=== PATIENT | male | born 1960 | race Caucasian/White ===

== ENCOUNTER 2018-06-08 11:55 | Inpatient (IN) | payer MEDICARE ==
[~2018-06-08] VITALS: Ht 363.2 cm; Wt 66.7 kg
[~2018-06-08 11:55] MED LIST: ASPI-1159 PO; ATOR40TA70 PO; BENA40TA9 PO; CINA30 PO; CYCL5TAB PO; DILT240C91 PO; GLIM1TAB2 PO; HYDR-523 PO; KRIL1CAP23 PO; SEVE800T8 PO; TURM1POW MC
[2018-06-08 12:59] LABS: HEMATOCRIT. 32.8 % (42.0-52.0); HEMOGLOBIN. 10.9 g/dL (14.0-18.0); MEAN CORPUSCULAR HEMOGLOBIN 32.4 pg (28.0-32.0); MEAN CORPUSCULAR VOLUME 97.4 fL (80.0-94.0); PLATELET 220 x1000/uL (130-400); RED BLOOD CELL COUNT 3.37 mill/uL (4.7-6.1); RED CELL DISTRIBUTION WIDTH 13.6 % (11.6-14.6)
[2018-06-08 13:08] LABS: CHLORIDE 101 mEq/L (98-107)
[2018-06-08 13:27] LABS: PLATELET ESTIMATE NORMAL
[2018-06-08] MEDS ORDERED: ASPIRIN 81MG TABLET PO NR (14:30)
[2018-06-08] MEDS ORDERED: HYDRALAZINE 20MG/ML VIAL IV NR (15:15)
[2018-06-08] MEDS ORDERED: NITROGLYCERIN 0.4MG TABLET SL SL ONE (16:15)
[2018-06-08] MEDS ORDERED: NITROGLYCERIN 50MG PREMIX 250 ML IV ONE (16:15)
[2018-06-08] MEDS ORDERED: LORAZEPAM 2MG/ML CPJ IV PRN (16:45)
[2018-06-08] MEDS ORDERED: MAGNESIUM/ALUMINUM HYDROXIDE/SIMETHICONE 30ML UDC PO PRN (16:45)
[2018-06-08] MEDS ORDERED: DOCUSATE SODIUM 100MG CAPSULE PO PRN (16:45)
[2018-06-08] MEDS ORDERED: ACETAMINOPHEN 325MG TABLET PO PRN (16:45)
[2018-06-08] MEDS ORDERED: DIPHENHYDRAMINE 50MG/ML VIAL IV PRN (16:45)
[2018-06-08] MEDS ORDERED: DEXTROSE 50% WATER 50ML SYRINGE IV PRN (16:45)
[2018-06-08] MEDS ORDERED: HYDRALAZINE 20MG/ML VIAL IV PRN (16:45)
[2018-06-08] MEDS ORDERED: ONDANSETRON HCL 4MG/2ML INJ IV PRN (16:45)
[2018-06-08] MEDS ORDERED: GUAIFENESIN 200MG/10ML SUGAR FREE UDC PO PRN (16:45)
[2018-06-08] MEDS ORDERED: IPRATROPIUM/ALBUTEROL 0.5-3(2.5)MG/3ML NEB INH PRN (16:45)
[2018-06-08] MEDS ORDERED: HYDROCODONE/ACETAMINOPHEN 10/325MG TABLET PO PRN (16:45)
[2018-06-08] MEDS ORDERED: CLONIDINE 0.1MG TABLET PO PRN (16:45)
[2018-06-08] MEDS ORDERED: HYDROMORPHONE HCL/PF 2MG/ML CPJ IV PRN (16:45)
[2018-06-08] MEDS: INSULIN LISPRO 100 UNITS/ML SUBCUT SCH (21:00)
[2018-06-08] MEDS: BLOOD SUGAR DIAGNOSTIC STRIP TEST SCH (21:00)
[2018-06-08 21:19] LABS: BG CARBOXYHEMOGLOBIN 0.4 % (0.5-1.5); BG DEOXYHEMOGLOBIN 13.9 % (0.0-5.0); BG FRACTION INSPIRED OXYGEN 50; BG HCO3 ACT 26.8 mmol/L (22.0-26.0); BG METHEMOGLOBIN 0.3 % (0.0-1.5); BG OXYHEMOGLOBIN 85.4 % (94.0-97.0); BG PCO2 33.6 mmHg (35.0-45.0); BG PH 7.519 (7.350-7.450); BG PO2 46.1 mmHg (75.0-100.0); BG SAMPLE SITE RIGHT RADIAL; BG TOTAL HEMOGLOBIN 11.2 g/dL (12.0-18.0); BG VENT MODE MASK - BIPAP; BG VENT RATE 15 set
[2018-06-08 21:35] VITALS: BP 167/106
[2018-06-08 22:00] VITALS: BP 172/95
[2018-06-08] MEDS: SODIUM CHLORIDE 0.9% INJ 3ML FLUSH IVF SCH (22:00)
[2018-06-08 22:14] VITALS: BP 185/110
[2018-06-08 22:30] VITALS: BP 142/86
[2018-06-08 23:00] VITALS: BP 165/111
[2018-06-08 23:30] VITALS: BP 139/94
[2018-06-08] MEDS ORDERED: INFLUENZA VIRUS VACCINE(AFLURIA) 0.5ML SYR IM ONE (23:45)
[2018-06-09] VITALS (40 sets, daily range): BP systolic 116–180; BP diastolic 58–102
[2018-06-09 00:53] LABS: CREATINE KINASE MB FRACTION 7.4 ng/mL (0.5-3.6)
[2018-06-09] MEDS: ENOXAPARIN 30MG/0.3ML SYR SUBCUT SCH ×2 (00:59→21:20)
[2018-06-09 06:52] LABS: CHLORIDE 101 mEq/L (98-107)
[2018-06-09 06:53] LABS: BASOPHILS % 0.5 % (0.0-2.0); EOSINOPHILS % 1.5 % (0.0-5.0); HEMATOCRIT. 36.9 % (42.0-52.0); HEMOGLOBIN. 12.2 g/dL (14.0-18.0); LYMPHOCYTES % 7.7 % (20.0-50.0); MEAN CORPUSCULAR HEMOGLOBIN 32.5 pg (28.0-32.0); MEAN CORPUSCULAR VOLUME 98.6 fL (80.0-94.0); MEAN PLATELET VOLUME 8.5 fl (7.4-10.4); MONOCYTES % 7.2 % (2.0-8.0); NEUTROPHILS % 83.1 % (40.0-76.0); PLATELET 206 x1000/uL (130-400); RED BLOOD CELL COUNT 3.75 mill/uL (4.7-6.1); RED CELL DISTRIBUTION WIDTH 13.7 % (11.6-14.6)
[2018-06-09] MEDS: SODIUM CHLORIDE 0.9% INJ 3ML FLUSH IVF SCH ×3 (06:55→21:20)
[2018-06-09] MEDS: BLOOD SUGAR DIAGNOSTIC STRIP TEST SCH ×4 (06:55→21:22)
[2018-06-09] MEDS: INSULIN LISPRO 100 UNITS/ML SUBCUT SCH ×4 (06:56→21:00)
[2018-06-09 07:17] LABS: BG BASE EXCESS 5.7 mmol/L (-2.0-2.0); BG CARBOXYHEMOGLOBIN 0.8 % (0.5-1.5); BG DEOXYHEMOGLOBIN 2.7 % (0.0-5.0); BG HCO3 ACT 29.7 mmol/L (22.0-26.0); BG METHEMOGLOBIN 0.3 % (0.0-1.5); BG OXYGEN SATURATION 97.3 % (92.0-98.5); BG OXYHEMOGLOBIN 96.2 % (94.0-97.0); BG PCO2 40.8 mmHg (35.0-45.0); BG PO2 93.5 mmHg (75.0-100.0); BG SAMPLE SITE RIGHT BRACHIAL; BG TOTAL HEMOGLOBIN 12.8 g/dL (12.0-18.0); BG VENT MODE NASAL CANNULA
[2018-06-09 07:26] LABS: PHOSPHORUS 1.9 mg/dL (2.5-4.9)
[2018-06-09 07:27] LABS: LDL CHOLESTEROL 133 mg/dL (5-100); T4 FREE 1.13 ng/dL (0.76-1.46)
[2018-06-09 07:28] LABS: CREATINE KINASE 102 IU/L (39-308); CREATINE KINASE MB FRACTION 6.4 ng/mL (0.5-3.6); HDL CHOLESTEROL 41 mg/dL (40-59)
[2018-06-09] MEDS: ASPIRIN 81MG EC TABLET PO SCH (09:01)
[2018-06-09 16:36] LABS: BG BASE EXCESS 3.1 mmol/L (-2.0-2.0); BG CARBOXYHEMOGLOBIN 0.7 % (0.5-1.5); BG DEOXYHEMOGLOBIN 4.2 % (0.0-5.0); BG FRACTION INSPIRED OXYGEN 21; BG HCO3 ACT 27.1 mmol/L (22.0-26.0); BG METHEMOGLOBIN 0.3 % (0.0-1.5); BG OXYGEN SATURATION 95.8 % (92.0-98.5); BG OXYHEMOGLOBIN 94.8 % (94.0-97.0); BG PH 7.459 (7.350-7.450); BG PO2 78.4 mmHg (75.0-100.0); BG SAMPLE SITE RIGHT RADIAL; BG TOTAL HEMOGLOBIN 12.3 g/dL (12.0-18.0); BG VENT MODE ROOM AIR
[2018-06-09] MEDS: IPRATROPIUM/ALBUTEROL 0.5-3(2.5)MG/3ML NEB HHN SCH (21:28)
[2018-06-10] VITALS (33 sets, daily range): BP systolic 108–175; BP diastolic 66–105
[2018-06-10] MEDS: IPRATROPIUM/ALBUTEROL 0.5-3(2.5)MG/3ML NEB HHN SCH ×4 (02:18→20:45)
[2018-06-10 05:31] LABS: BASOPHILS % 0.6 % (0.0-2.0); EOSINOPHILS % 1.4 % (0.0-5.0); HEMATOCRIT. 35.6 % (42.0-52.0); LYMPHOCYTES % 7.7 % (20.0-50.0); MEAN CORPUSCULAR HEMOGLOBIN 32.9 pg (28.0-32.0); MEAN CORPUSCULAR VOLUME 97.2 fL (80.0-94.0); MEAN PLATELET VOLUME 8.2 fl (7.4-10.4); NEUTROPHILS % 82.3 % (40.0-76.0); PLATELET 203 x1000/uL (130-400); RED BLOOD CELL COUNT 3.66 mill/uL (4.7-6.1); RED CELL DISTRIBUTION WIDTH 13.7 % (11.6-14.6)
[2018-06-10] MEDS: SODIUM CHLORIDE 0.9% INJ 3ML FLUSH IVF SCH ×3 (06:03→22:00)
[2018-06-10] MEDS: INSULIN LISPRO 100 UNITS/ML SUBCUT SCH ×4 (06:54→21:00)
[2018-06-10] MEDS: BLOOD SUGAR DIAGNOSTIC STRIP TEST SCH ×4 (06:54→21:00)
[2018-06-10] MEDS: ASPIRIN 81MG EC TABLET PO SCH (08:02)
[2018-06-11] VITALS (27 sets, daily range): BP systolic 127–182; BP diastolic 65–98
[2018-06-11] MEDS: IPRATROPIUM/ALBUTEROL 0.5-3(2.5)MG/3ML NEB HHN SCH ×4 (02:08→20:51)
[2018-06-11 05:54] LABS: PARTIAL THROMBOPLASTIN TIME 27.4 sec (23.4-31.0); PROTHROMBIN TIME 9.7 sec (9.1-11.1)
[2018-06-11 05:55] LABS: BASOPHILS % 0.7 % (0.0-2.0); EOSINOPHILS % 3.4 % (0.0-5.0); HEMATOCRIT. 34.9 % (42.0-52.0); HEMOGLOBIN. 11.9 g/dL (14.0-18.0); MEAN CORPUSCULAR HEMOGLOBIN 33.1 pg (28.0-32.0); MEAN CORPUSCULAR VOLUME 97.1 fL (80.0-94.0); MEAN PLATELET VOLUME 8.5 fl (7.4-10.4); MONOCYTES % 10.7 % (2.0-8.0); NEUTROPHILS % 75.2 % (40.0-76.0); PLATELET 213 x1000/uL (130-400); RED CELL DISTRIBUTION WIDTH 13.5 % (11.6-14.6)
[2018-06-11] MEDS: SODIUM CHLORIDE 0.9% INJ 3ML FLUSH IVF SCH ×3 (06:13→21:03)
[2018-06-11] MEDS: INSULIN LISPRO 100 UNITS/ML SUBCUT SCH ×4 (06:55→20:50)
[2018-06-11] MEDS: BLOOD SUGAR DIAGNOSTIC STRIP TEST SCH ×4 (06:55→20:50)
[2018-06-11] MEDS: ASPIRIN 81MG EC TABLET PO SCH (07:47)
[2018-06-11] MEDS ORDERED: LIDOCAINE HCL 1% 20ML VIAL (Pyxis) INJ ONE (12:15)
[2018-06-11] MEDS ORDERED: IODIXANOL 320MG/ML 100 ML BOTTLE IV ONE (12:16)
[2018-06-11] MEDS ORDERED: MIDAZOLAM HCL 2 MG/2 ML VIAL ONE (12:54)
[2018-06-11] MEDS ORDERED: FENTANYL CITRATE/PF 50MCG/ML 2ML VIAL ONE (12:54)
[2018-06-11] MEDS ORDERED: ACETAMINOPHEN 325MG TABLET PO PRN (13:45)
[2018-06-11] MEDS ORDERED: ATROPINE SULFATE 1MG/10ML SYR IV PRN (13:45)
[2018-06-11] MEDS ORDERED: NITROGLYCERIN 50MCG/ML 10ML VIAL (CATH LAB) IV ONE (13:59)
[2018-06-11] MEDS ORDERED: NICARDIPINE 100MCG/ML 10ML VIAL (CATH LAB) IV ONE (13:59)
[2018-06-11] MEDS: ISOSORBIDE MONONITRATE 30MG TABLET SR 24HR PO SCH (15:49)
[2018-06-11] MEDS: METOPROLOL TARTRATE 25MG TABLET PO SCH (20:58)
[2018-06-11] MEDS ORDERED: CARVEDILOL 3.125 MG TABLET PO SCH (21:00)
[2018-06-11] MEDS ORDERED: ATORVASTATIN CALCIUM 40MG TABLET PO SCH (21:00)
[2018-06-11] MEDS ORDERED: ATORVASTATIN CALCIUM 20MG TABLET PO SCH (21:00)
[2018-06-12] VITALS (13 sets, daily range): BP systolic 106–160; BP diastolic 66–86
[2018-06-12] MEDS: IPRATROPIUM/ALBUTEROL 0.5-3(2.5)MG/3ML NEB HHN SCH ×3 (01:04→14:24)
[2018-06-12] MEDS: SODIUM CHLORIDE 0.9% INJ 3ML FLUSH IVF SCH ×2 (06:18→14:00)
[2018-06-12] MEDS: BLOOD SUGAR DIAGNOSTIC STRIP TEST SCH ×3 (06:18→16:36)
[2018-06-12 07:05] LABS: BASOPHILS % 0.7 % (0.0-2.0); EOSINOPHILS % 4.7 % (0.0-5.0); HEMATOCRIT. 33.4 % (42.0-52.0); HEMOGLOBIN. 11.3 g/dL (14.0-18.0); MEAN CORPUSCULAR HEMOGLOBIN 33.1 pg (28.0-32.0); MEAN CORPUSCULAR VOLUME 97.7 fL (80.0-94.0); MEAN PLATELET VOLUME 8.6 fl (7.4-10.4); MONOCYTES % 8.7 % (2.0-8.0); NEUTROPHILS % 76.9 % (40.0-76.0); PLATELET 214 x1000/uL (130-400); RED BLOOD CELL COUNT 3.42 mill/uL (4.7-6.1); RED CELL DISTRIBUTION WIDTH 13.4 % (11.6-14.6)
[2018-06-12] MEDS: INSULIN LISPRO 100 UNITS/ML SUBCUT SCH ×3 (07:20→16:36)
[2018-06-12] MEDS: ASPIRIN 81MG EC TABLET PO SCH (08:11)
[2018-06-12] MEDS: METOPROLOL TARTRATE 25MG TABLET PO SCH (08:13)
[2018-06-12] MEDS: ISOSORBIDE MONONITRATE 30MG TABLET SR 24HR PO SCH (08:16)
[2018-06-12] MEDS ORDERED: BENAZEPRIL 10MG TABLET PO SCH (09:00)
== END 2018-06-12 21:20 | disposition home or self-care (01) | DRG 280 ==
LOC: ER 12:50 → EDBEDREQ 15:06 → ENRESERV 15:34 → CANRESERV 15:34 → EDBEDREQSVC 16:16 → MICUSO 16:16 → EDBEDREQTM 16:16 → ENRESERV 18:37 → MICUSO 06-10 06:15 → CVICU 06-10 15:53 → 3WST 06-11 20:18
PROVIDERS: ADMIT Internal Medicine; ATTEND Internal Medicine
PROC: 5A09357 Assistance with Respiratory Ventilation, Less than 24 Consecutive Hours, Continuous Positive Airway Pressure (ICD-10-PCS; principal; 2018-06-08)
PROC: 5A1D70Z Performance of Urinary Filtration, Intermittent, Less than 6 Hours Per Day (ICD-10-PCS; 2018-06-08)
PROC: 5A1D70Z Performance of Urinary Filtration, Intermittent, Less than 6 Hours Per Day (ICD-10-PCS; 2018-06-10)
PROC: 5A1D70Z Performance of Urinary Filtration, Intermittent, Less than 6 Hours Per Day (ICD-10-PCS; 2018-06-11)
PROC: 4A023N7 Measurement of Cardiac Sampling and Pressure, Left Heart, Percutaneous Approach (ICD-10-PCS; 2018-06-11)
PROC: B2111ZZ Fluoroscopy of Multiple Coronary Arteries using Low Osmolar Contrast (ICD-10-PCS; 2018-06-11)
PROC: B2151ZZ Fluoroscopy of Left Heart using Low Osmolar Contrast (ICD-10-PCS; 2018-06-11)
PROC: B41F1ZZ Fluoroscopy of Right Lower Extremity Arteries using Low Osmolar Contrast (ICD-10-PCS; 2018-06-11)
DX: I21.4 Non-ST elevation (NSTEMI) myocardial infarction (principal); J96.00 Acute respiratory failure, unspecified whether with hypoxia or hypercapnia; N18.6 End stage renal disease; I13.2 Hypertensive heart and chronic kidney disease with heart failure and with stage 5 chronic kidney disease, or end stage renal disease; E46 Unspecified protein-calorie malnutrition; I50.32 Chronic diastolic (congestive) heart failure; I42.9 Cardiomyopathy, unspecified; E87.1 Hypo-osmolality and hyponatremia; I25.10 Atherosclerotic heart disease of native coronary artery without angina pectoris; E11.22 Type 2 diabetes mellitus with diabetic chronic kidney disease; E87.5 Hyperkalemia; D63.8 Anemia in other chronic diseases classified elsewhere; E78.5 Hyperlipidemia, unspecified; J44.9 Chronic obstructive pulmonary disease, unspecified; Z79.82 Long term (current) use of aspirin; Z79.84 Long term (current) use of oral hypoglycemic drugs; Z82.49 Family history of ischemic heart disease and other diseases of the circulatory system; Z87.891 Personal history of nicotine dependence; Z99.2 Dependence on renal dialysis; Z79.899 Other long term (current) drug therapy
CPT/HCPCS: 36415; 36600; 71045; 80048; 80061; 82375; 82550; 82553; 82805; 82962; 83605; 83880; 84100; 84439; 84443; 84484; 93005; 93306; 93458; 94640; 94660; 96374; 96375; 99291; C1760; C1769; C1887; C1893; J0360; J1644; J1650; J1815; J2060; J2250; J3010; J3490; J7620; Q9967

== ENCOUNTER 2018-06-19 05:59 | Inpatient (IN) | payer MEDICARE ==
[~2018-06-19] VITALS: Ht 182.9 cm; Wt 76.4 kg
[2018-06-19 06:44] LABS: BASOPHILS % 0.6 % (0.0-2.0); EOSINOPHILS % 1.7 % (0.0-5.0); HEMATOCRIT. 29.1 % (42.0-52.0); HEMOGLOBIN. 9.9 g/dL (14.0-18.0); LYMPHOCYTES % 9.5 % (20.0-50.0); MEAN CORPUSCULAR HEMOGLOBIN 33.5 pg (28.0-32.0); MEAN PLATELET VOLUME 8.3 fl (7.4-10.4); MONOCYTES % 9.1 % (2.0-8.0); NEUTROPHILS % 79.1 % (40.0-76.0); PLATELET 176 x1000/uL (130-400); RED BLOOD CELL COUNT 2.97 mill/uL (4.7-6.1)
[2018-06-19 06:49] LABS: CHLORIDE 102 mEq/L (98-107)
[2018-06-19] MEDS ORDERED: SODIUM CHLORIDE 0.9% 1,000 ML IV ONE (06:50)
[2018-06-19] MEDS ORDERED: SODIUM CHLORIDE 0.9% 1000ML BAG (SEPSIS BOLUS) IV ONE (07:00)
[2018-06-19] MEDS ORDERED: CLONIDINE 0.1MG TABLET PO PRN (21:45)
[2018-06-19] MEDS ORDERED: ONDANSETRON HCL 4MG/2ML INJ IV PRN (21:45)
[2018-06-19] MEDS ORDERED: DIPHENHYDRAMINE 50MG/ML VIAL IV PRN (21:45)
[2018-06-19] MEDS ORDERED: MAGNESIUM/ALUMINUM HYDROXIDE/SIMETHICONE 30ML UDC PO PRN (21:45)
[2018-06-19] MEDS ORDERED: GUAIFENESIN 200MG/10ML SUGAR FREE UDC PO PRN (21:45)
[2018-06-19 23:30] VITALS: BP 160/80
[2018-06-20] VITALS (9 sets, daily range): BP systolic 123–180; BP diastolic 64–97
[2018-06-20] MEDS ORDERED: ACETAMINOPHEN 325MG TABLET PO PRN ×2 (01:00→22:00)
[2018-06-20 07:28] LABS: BASOPHILS % 1.1 % (0.0-2.0); EOSINOPHILS % 2.2 % (0.0-5.0); HEMATOCRIT. 33.9 % (42.0-52.0); HEMOGLOBIN. 11.3 g/dL (14.0-18.0); LYMPHOCYTES % 10.1 % (20.0-50.0); MEAN CORPUSCULAR HEMOGLOBIN 32.8 pg (28.0-32.0); MEAN CORPUSCULAR VOLUME 98.5 fL (80.0-94.0); MEAN PLATELET VOLUME 8.6 fl (7.4-10.4); MONOCYTES % 7.1 % (2.0-8.0); NEUTROPHILS % 79.5 % (40.0-76.0); PLATELET 228 x1000/uL (130-400); RED BLOOD CELL COUNT 3.44 mill/uL (4.7-6.1)
[2018-06-20] MEDS: BENAZEPRIL 10MG TABLET PO SCH ×2 (09:32→11:07)
[2018-06-20] MEDS: AMLODIPINE 10MG TABLET PO SCH ×2 (09:32→11:06)
[2018-06-20] MEDS: ENOXAPARIN 30MG/0.3ML SYR SUBCUT SCH (09:33)
[2018-06-20] MEDS ORDERED: MORPHINE SULFATE 4 MG/ML CPJ (NOT FOR IM USE) IV PRN (13:15)
[2018-06-20] MEDS: ASPIRIN 81MG TABLET PO SCH (13:23)
[2018-06-20] MEDS: NITROGLYCERIN OINT 1GM/INCH UDPKT TD SCH ×2 (13:23→21:50)
[2018-06-20] MEDS: CARVEDILOL 3.125 MG TABLET PO SCH ×2 (13:23→21:50)
[2018-06-20] MEDS: SODIUM CHLORIDE 0.9% INJ 3ML FLUSH IVF SCH ×4 (14:00→22:33)
[2018-06-20] MEDS ORDERED: DOCUSATE SODIUM 100MG CAPSULE PO SCH (21:00)
[2018-06-20] MEDS ORDERED: BISACODYL 10MG SUPP PR PRN (21:00)
[2018-06-20] MEDS ORDERED: ATORVASTATIN CALCIUM 40MG TABLET PO SCH (21:00)
[2018-06-20] MEDS ORDERED: NITROGLYCERIN 0.4MG TABLET SL SL PRN (22:00)
[2018-06-20] MEDS: ALLOPURINOL 300 MG TABLET PO SCH (22:40)
[2018-06-20] MEDS ORDERED: ASCORBIC ACID 500 MG TABLET PO SCH (23:00)
[2018-06-20] MEDS ORDERED: CHLORHEXIDINE GLUCONATE 4% EXTERNAL USE TOP SCH (23:30)
[2018-06-21] VITALS (39 sets, daily range): BP systolic 83–185; BP diastolic 48–89
[2018-06-21] MEDS: ALLOPURINOL 300 MG TABLET PO SCH (06:04)
[2018-06-21] MEDS: SODIUM CHLORIDE 0.9% INJ 3ML FLUSH IVF SCH (06:04)
[2018-06-21] MEDS: NITROGLYCERIN OINT 1GM/INCH UDPKT TD SCH (06:05)
[2018-06-21 07:04] LABS: HEMATOCRIT. 30.4 % (42.0-52.0); HEMOGLOBIN. 10.3 g/dL (14.0-18.0); MEAN CORPUSCULAR HEMOGLOBIN 32.7 pg (28.0-32.0); MEAN CORPUSCULAR VOLUME 96.9 fL (80.0-94.0); MEAN PLATELET VOLUME 8.6 fl (7.4-10.4); PLATELET 185 x1000/uL (130-400); RED BLOOD CELL COUNT 3.14 mill/uL (4.7-6.1); RED CELL DISTRIBUTION WIDTH 13.1 % (11.6-14.6)
[2018-06-21 07:12] LABS: PROTHROMBIN TIME 10.5 sec (9.1-11.1)
[2018-06-21 07:23] LABS: CHLORIDE 102 mEq/L (98-107)
[2018-06-21] MEDS ORDERED: METHYLENE BLUE 50 MG/10 ML AMP IV ONE (08:00)
[2018-06-21] MEDS ORDERED: THROMBIN (BOVINE) 5000 UNITS/VIAL TOP ONE ×3 (08:01→16:48)
[2018-06-21] MEDS ORDERED: HEPARIN 5000 UNITS/ML VIAL ONE (08:01)
[2018-06-21] MEDS ORDERED: BACITRACIN 50,000 UNITS/VIAL ONE ×2 (08:02→09:37)
[2018-06-21] MEDS ORDERED: GELATIN SPONGE,ABSORBABLE 12-7MM SPONGE ONE (08:10)
[2018-06-21] MEDS ORDERED: PAPAVERINE HCL 30 MG/ML 2ML IV ONE (08:11)
[2018-06-21] MEDS: CARVEDILOL 3.125 MG TABLET PO SCH (08:23)
[2018-06-21] MEDS: CHLORHEXIDINE GLUCONATE 4% EXTERNAL USE TOP SCH ×2 (08:23→09:00)
[2018-06-21] MEDS: BENAZEPRIL 10MG TABLET PO SCH (09:00)
[2018-06-21] MEDS: ASPIRIN 81MG TABLET PO SCH (09:00)
[2018-06-21] MEDS: ENOXAPARIN 30MG/0.3ML SYR SUBCUT SCH (09:00)
[2018-06-21] MEDS: AMLODIPINE 10MG TABLET PO SCH (09:00)
[2018-06-21] MEDS ORDERED: HEPARIN 1000 UNITS/ML 10ML ONE ×2 (09:40→12:34)
[2018-06-21] MEDS ORDERED: MIDAZOLAM HCL 5 MG/ML VIAL ONE (10:59)
[2018-06-21] MEDS ORDERED: ROCURONIUM BROMIDE 10MG/ML VIAL 5ML IV ONE (11:00)
[2018-06-21] MEDS ORDERED: AMINOCAPROIC ACID 10,000 MG in SODIUM CHLORIDE 0.9% 460 ML IV PRN (11:00)
[2018-06-21] MEDS ORDERED: PAPAVERINE HCL 180MG in SODIUM CHLORIDE 0.9% 24ML IV PRN (11:00)
[2018-06-21] MEDS ORDERED: NICARDIPINE 40MG/200ML PREMIX 200 ML IV PRN (11:00)
[2018-06-21] MEDS ORDERED: DOBUTAMINE HCL 250 MG in DEXT 5% WATER 230 ML IV PRN (11:00)
[2018-06-21] MEDS ORDERED: PROPOFOL 200MG/20ML VIAL IV ONE (11:00)
[2018-06-21] MEDS ORDERED: EPINEPHRINE 4 MG in DEXT 5% WATER 246 ML IV PRN (11:00)
[2018-06-21] MEDS ORDERED: NOREPINEPHRINE 4 MG in DEXT 5% WATER 246 ML IV PRN (11:00)
[2018-06-21] MEDS ORDERED: INSULIN REGULAR (DRIP) 100 UNITS in SODIUM CHLORIDE 0.9% 99 ML IV PRN (11:00)
[2018-06-21] MEDS ORDERED: CEFAZOLIN 2,000 MG in DEXT 5% WATER 100 ML IV PRN (11:00)
[2018-06-21] MEDS ORDERED: DEL NIDO ELECTROLYTE-S(PH 7.4) 1,000 ML IV PRN ×2 (11:00)
[2018-06-21] MEDS ORDERED: FENTANYL CITRATE/PF 50MCG/ML 5ML VIAL ONE (11:01)
[2018-06-21] MEDS ORDERED: BACITRACIN 15GM TUBE TOP ONE (11:05)
[2018-06-21] MEDS ORDERED: LIDOCAINE HCL/PF 2% 20MG/ML 5 ML/VIAL ONE (11:41)
[2018-06-21 12:32] LABS: PLATELET ESTIMATE NORMAL
[2018-06-21] MEDS ORDERED: PHENYLEPHRINE HCL 10 MG/ML 1ML (IV VIAL) IV ONE (12:32)
[2018-06-21] MEDS ORDERED: ALBUMIN HUMAN 25GM/100ML (25%) IV ONE (12:32)
[2018-06-21] MEDS ORDERED: SODIUM BICARBONATE 8.4% 1 MEQ/ML 50ML SYR IV ONE ×3 (12:32→20:23)
[2018-06-21] MEDS ORDERED: AMINOCAPROIC ACID 250 MG/ML 20ML VIAL ONE (12:32)
[2018-06-21] MEDS ORDERED: CALCIUM CHLORIDE 1GM/10ML SYR IV ONE ×2 (12:32→15:46)
[2018-06-21] MEDS ORDERED: HEPARIN 10,000 UNITS/ML VIAL ONE ×2 (12:33→14:47)
[2018-06-21] MEDS ORDERED: MANNITOL 20% 500 ML IV ONE (12:33)
[2018-06-21] MEDS ORDERED: NEOSTIGMINE METHYLSULFATE 1MG/ML 10 ML VIAL ONE (15:39)
[2018-06-21] MEDS ORDERED: PROTAMINE SULFATE 10MG/ML VIAL 25ML IV ONE (15:46)
[2018-06-21] MEDS ORDERED: GENTAMICIN SULF 40MG/ML 2ML VIAL ONE (16:39)
[2018-06-21] MEDS ORDERED: SEVOFLURANE 250 ML LIQUID INH ONE (16:39)
[2018-06-21 17:49] LABS: HEMATOCRIT. 23.4 % (42.0-52.0); HEMOGLOBIN. 7.8 g/dL (14.0-18.0); MEAN CORPUSCULAR HEMOGLOBIN 32.8 pg (28.0-32.0); MEAN CORPUSCULAR VOLUME 97.9 fL (80.0-94.0); MEAN PLATELET VOLUME 8.7 fl (7.4-10.4); PLATELET 113 x1000/uL (130-400); RED BLOOD CELL COUNT 2.39 mill/uL (4.7-6.1)
[2018-06-21 17:52] LABS: CHLORIDE 102 mEq/L (98-107)
[2018-06-21 18:49] LABS: PLATELET ESTIMATE SLIGHTLY DECREASED
[2018-06-21 19:00] LABS: BG BASE EXCESS -6.6 mmol/L (-2.0-2.0); BG CARBOXYHEMOGLOBIN 0.3 % (0.5-1.5); BG DEOXYHEMOGLOBIN 16.3 % (0.0-5.0); BG FRACTION INSPIRED OXYGEN 100; BG HCO3 ACT 20.5 mmol/L (22.0-26.0); BG METHEMOGLOBIN 0.1 % (0.0-1.5); BG OXYGEN SATURATION 83.6 % (92.0-98.5); BG OXYHEMOGLOBIN 83.3 % (94.0-97.0); BG PCO2 48.7 mmHg (35.0-45.0); BG PH 7.243 (7.350-7.450); BG SAMPLE SITE A-LINE; BG TOTAL HEMOGLOBIN 9.4 g/dL (12.0-18.0); BG VENT MODE AMBU BAG
[2018-06-21] MEDS ORDERED: NICARDIPINE 50 MG in SODIUM CHLORIDE 0.9% 230 ML IV PRN ×4 (19:15)
[2018-06-21] MEDS ORDERED: ALBUMIN HUMAN 12.5G/250ML (5%) IV PRN (19:30)
[2018-06-21] MEDS ORDERED: SODIUM CHLORIDE 0.9% 500 ML IV PRN (19:30)
[2018-06-21] MEDS ORDERED: ACETAMINOPHEN 325MG TABLET PO PRN (19:30)
[2018-06-21] MEDS ORDERED: OXYCODONE HCL/ACETAMINOPHEN 5/325MG TABLET PO PRN ×2 (19:30)
[2018-06-21] MEDS ORDERED: MORPHINE SULFATE 4 MG/ML CPJ (NOT FOR IM USE) IV PRN (19:30)
[2018-06-21] MEDS ORDERED: ONDANSETRON HCL 4MG/2ML INJ IV PRN (19:30)
[2018-06-21] MEDS ORDERED: DOCUSATE SODIUM 100MG CAPSULE PO SCH (20:00)
[2018-06-21 20:10] LABS: BG BASE EXCESS -4.2 mmol/L (-2.0-2.0); BG BILEVEL POS AIRWAY PRESSURE 18/5; BG CARBOXYHEMOGLOBIN 0.3 % (0.5-1.5); BG DEOXYHEMOGLOBIN 4.8 % (0.0-5.0); BG FRACTION INSPIRED OXYGEN 60; BG HCO3 ACT 21.4 mmol/L (22.0-26.0); BG METHEMOGLOBIN 0.3 % (0.0-1.5); BG OXYGEN SATURATION 95.2 % (92.0-98.5); BG OXYHEMOGLOBIN 94.6 % (94.0-97.0); BG PCO2 41.4 mmHg (35.0-45.0); BG PH 7.332 (7.350-7.450); BG PO2 80.4 mmHg (75.0-100.0); BG SAMPLE SITE A-LINE; BG TOTAL HEMOGLOBIN 9.9 g/dL (12.0-18.0); BG VENT MODE MASK - BIPAP; BG VENT RATE 18 set
[2018-06-21] MEDS: IPRATROPIUM/ALBUTEROL 0.5-3(2.5)MG/3ML NEB HHN SCH (20:42)
[2018-06-21] MEDS: DEXT 5%/0.45% NACL 1000ML 1,000 ML IV SCH (20:54)
[2018-06-21] MEDS ORDERED: NOREPINEPHRINE 4 MG in DEXT 5% WATER 246 ML IV SCH (21:00)
[2018-06-21] MEDS ORDERED: CEFAZOLIN 1000MG PREMIX 50 ML IV NR (21:00)
[2018-06-21 21:21] LABS: BG BASE EXCESS -1.4 mmol/L (-2.0-2.0); BG BILEVEL POS AIRWAY PRESSURE 18/5; BG CARBOXYHEMOGLOBIN 0.3 % (0.5-1.5); BG DEOXYHEMOGLOBIN 4.3 % (0.0-5.0); BG FRACTION INSPIRED OXYGEN 60; BG HCO3 ACT 24.3 mmol/L (22.0-26.0); BG METHEMOGLOBIN 0.3 % (0.0-1.5); BG OXYGEN SATURATION 95.7 % (92.0-98.5); BG OXYHEMOGLOBIN 95.1 % (94.0-97.0); BG PCO2 45.3 mmHg (35.0-45.0); BG PH 7.348 (7.350-7.450); BG PO2 82.9 mmHg (75.0-100.0); BG SAMPLE SITE A-LINE; BG TOTAL HEMOGLOBIN 9.9 g/dL (12.0-18.0); BG VENT MODE MASK - BIPAP
[2018-06-22] VITALS (111 sets, daily range): BP systolic 108–181; BP diastolic -22–99
[2018-06-22] MEDS ORDERED: INSULIN REGULAR (DRIP) 100 UNITS in SODIUM CHLORIDE 0.9% 100 ML IV SCH (00:01)
[2018-06-22] MEDS ORDERED: DEXTROSE 50% WATER 50ML SYRINGE IV PRN ×2 (00:15)
[2018-06-22] MEDS: IPRATROPIUM/ALBUTEROL 0.5-3(2.5)MG/3ML NEB HHN SCH ×7 (00:18→23:49)
[2018-06-22 00:30] LABS: HEMATOCRIT. 26.1 % (42.0-52.0); MEAN CORPUSCULAR HEMOGLOBIN 31.7 pg (28.0-32.0); MEAN CORPUSCULAR VOLUME 91.5 fL (80.0-94.0); PLATELET 146 x1000/uL (130-400); RED BLOOD CELL COUNT 2.85 mill/uL (4.7-6.1)
[2018-06-22] MEDS: BLOOD SUGAR DIAGNOSTIC STRIP TEST SCH ×23 (01:00→23:00)
[2018-06-22 05:24] LABS: BG BASE EXCESS -1.9 mmol/L (-2.0-2.0); BG BILEVEL POS AIRWAY PRESSURE 18/5; BG CARBOXYHEMOGLOBIN 0.3 % (0.5-1.5); BG DEOXYHEMOGLOBIN 2.6 % (0.0-5.0); BG FRACTION INSPIRED OXYGEN 40; BG HCO3 ACT 23.7 mmol/L (22.0-26.0); BG OXYGEN SATURATION 97.4 % (92.0-98.5); BG OXYHEMOGLOBIN 97.1 % (94.0-97.0); BG PCO2 44.1 mmHg (35.0-45.0); BG PH 7.349 (7.350-7.450); BG PO2 106.1 mmHg (75.0-100.0); BG SAMPLE SITE A-LINE; BG VENT MODE MASK - BIPAP
[2018-06-22 06:18] LABS: HEMATOCRIT. 27.2 % (42.0-52.0); HEMOGLOBIN. 9.4 g/dL (14.0-18.0); MEAN CORPUSCULAR HEMOGLOBIN 31.7 pg (28.0-32.0); MEAN CORPUSCULAR VOLUME 91.9 fL (80.0-94.0); MEAN PLATELET VOLUME 8.7 fl (7.4-10.4); PLATELET 158 x1000/uL (130-400); RED BLOOD CELL COUNT 2.96 mill/uL (4.7-6.1); RED CELL DISTRIBUTION WIDTH 17.7 % (11.6-14.6)
[2018-06-22 06:31] LABS: PHOSPHORUS 4.6 mg/dL (2.5-4.9)
[2018-06-22] MEDS: FAMOTIDINE 20MG/2ML VIAL IV SCH (09:04)
[2018-06-22] MEDS: BACITRACIN 15GM TUBE TOP SCH ×2 (09:04→17:23)
[2018-06-22] MEDS: DOCUSATE SODIUM 100MG CAPSULE PO SCH (09:08)
[2018-06-22] MEDS: LACTULOSE 20G/30ML UDC PO SCH (09:08)
[2018-06-22] MEDS: POLYETHYLENE GLYCOL 3350 (17GM) 1 DOSE PACK PO SCH (09:08)
[2018-06-22] MEDS: SENNOSIDES/DOCUSATE SOD 8.6/50MG TABLET PO SCH (13:54)
[2018-06-22] MEDS ORDERED: CLONIDINE 0.1MG TABLET PO PRN (14:30)
[2018-06-22] MEDS: ASPIRIN 81MG TABLET PO SCH (15:17)
[2018-06-22] MEDS: CARVEDILOL 3.125 MG TABLET PO SCH ×2 (15:17→21:06)
[2018-06-22] MEDS: DEXT 5%/0.45% NACL 1000ML 1,000 ML IV SCH (21:02)
[2018-06-22] MEDS: ATORVASTATIN CALCIUM 40MG TABLET PO SCH (21:06)
[2018-06-23] VITALS (43 sets, daily range): BP systolic 101–144; BP diastolic 66–91
[2018-06-23] MEDS: BLOOD SUGAR DIAGNOSTIC STRIP TEST SCH ×24 (00:39→23:34)
[2018-06-23 04:01] LABS: PLATELET ESTIMATE NORMAL
[2018-06-23] MEDS: IPRATROPIUM/ALBUTEROL 0.5-3(2.5)MG/3ML NEB HHN SCH ×5 (04:25→21:27)
[2018-06-23 07:05] LABS: HEMOGLOBIN. 10.2 g/dL (14.0-18.0); MEAN CORPUSCULAR HEMOGLOBIN 31.3 pg (28.0-32.0); PLATELET 143 x1000/uL (130-400); RED BLOOD CELL COUNT 3.26 mill/uL (4.7-6.1); RED CELL DISTRIBUTION WIDTH 18.2 % (11.6-14.6)
[2018-06-23 07:21] LABS: PHOSPHORUS 4.3 mg/dL (2.5-4.9)
[2018-06-23] MEDS: LACTULOSE 20G/30ML UDC PO SCH (08:30)
[2018-06-23] MEDS: DOCUSATE SODIUM 100MG CAPSULE PO SCH (08:31)
[2018-06-23] MEDS: CARVEDILOL 3.125 MG TABLET PO SCH ×2 (08:31→21:00)
[2018-06-23] MEDS: SENNOSIDES/DOCUSATE SOD 8.6/50MG TABLET PO SCH (08:31)
[2018-06-23] MEDS: FAMOTIDINE 20MG/2ML VIAL IV SCH (08:31)
[2018-06-23] MEDS: ASPIRIN 81MG TABLET PO SCH (08:31)
[2018-06-23] MEDS: POLYETHYLENE GLYCOL 3350 (17GM) 1 DOSE PACK PO SCH (08:32)
[2018-06-23] MEDS: BACITRACIN 15GM TUBE TOP SCH ×2 (09:00→17:00)
[2018-06-23 13:51] LABS: PLATELET ESTIMATE NORMAL
[2018-06-23 14:04] LABS: PLATELET ESTIMATE NORMAL
[2018-06-23] MEDS ORDERED: LACTULOSE 20G/30ML UDC PO NR (17:45)
[2018-06-23] MEDS: ATORVASTATIN CALCIUM 40MG TABLET PO SCH (22:26)
[2018-06-24] VITALS (33 sets, daily range): BP systolic 121–150; BP diastolic 67–87
[2018-06-24] MEDS: BLOOD SUGAR DIAGNOSTIC STRIP TEST SCH ×15 (00:17→22:02)
[2018-06-24] MEDS: IPRATROPIUM/ALBUTEROL 0.5-3(2.5)MG/3ML NEB HHN SCH ×5 (04:35→20:59)
[2018-06-24 08:04] LABS: HEMATOCRIT. 30.5 % (42.0-52.0); HEMOGLOBIN. 10.2 g/dL (14.0-18.0); MEAN CORPUSCULAR HEMOGLOBIN 30.9 pg (28.0-32.0); MEAN CORPUSCULAR VOLUME 92.7 fL (80.0-94.0); MEAN PLATELET VOLUME 9.5 fl (7.4-10.4); PLATELET 157 x1000/uL (130-400); RED BLOOD CELL COUNT 3.29 mill/uL (4.7-6.1); RED CELL DISTRIBUTION WIDTH 17.5 % (11.6-14.6)
[2018-06-24] MEDS: BACITRACIN 15GM TUBE TOP SCH ×3 (09:00→16:08)
[2018-06-24] MEDS: SENNOSIDES/DOCUSATE SOD 8.6/50MG TABLET PO SCH (09:06)
[2018-06-24] MEDS: POLYETHYLENE GLYCOL 3350 (17GM) 1 DOSE PACK PO SCH (09:06)
[2018-06-24] MEDS: ASPIRIN 81MG TABLET PO SCH (09:06)
[2018-06-24] MEDS: FAMOTIDINE 20MG/2ML VIAL IV SCH (09:06)
[2018-06-24] MEDS: DOCUSATE SODIUM 100MG CAPSULE PO SCH (09:06)
[2018-06-24] MEDS: LACTULOSE 20G/30ML UDC PO SCH (09:06)
[2018-06-24 09:08] LABS: PLATELET ESTIMATE NORMAL
[2018-06-24] MEDS: CARVEDILOL 3.125 MG TABLET PO SCH (09:08)
[2018-06-24] MEDS ORDERED: ASPIRIN 81MG TABLET PO SCH (11:00)
[2018-06-24] MEDS: CARVEDILOL 6.25 MG TABLET PO SCH ×3 (11:00→21:58)
[2018-06-24] MEDS ORDERED: DEXTROSE 50% WATER 50ML SYRINGE IV PRN (11:30)
[2018-06-24] MEDS ORDERED: INSULIN GLARGINE UD 100 UNITS/ML SYR SUBCUT NR (11:45)
[2018-06-24] MEDS: INSULIN LISPRO 100 UNITS/ML SUBCUT SCH ×3 (12:08→22:06)
[2018-06-24] MEDS: ATORVASTATIN CALCIUM 40MG TABLET PO SCH (21:58)
[2018-06-25] VITALS (18 sets, daily range): BP systolic 135–167; BP diastolic 64–93
[2018-06-25] MEDS: IPRATROPIUM/ALBUTEROL 0.5-3(2.5)MG/3ML NEB HHN SCH ×6 (01:12→21:57)
[2018-06-25] MEDS: BLOOD SUGAR DIAGNOSTIC STRIP TEST SCH ×4 (05:48→20:51)
[2018-06-25] MEDS: INSULIN LISPRO 100 UNITS/ML SUBCUT SCH ×4 (07:20→21:11)
[2018-06-25] MEDS: POLYETHYLENE GLYCOL 3350 (17GM) 1 DOSE PACK PO SCH (08:30)
[2018-06-25] MEDS: LACTULOSE 20G/30ML UDC PO SCH (08:30)
[2018-06-25] MEDS: FAMOTIDINE 20MG/2ML VIAL IV SCH (08:30)
[2018-06-25] MEDS: SENNOSIDES/DOCUSATE SOD 8.6/50MG TABLET PO SCH (08:31)
[2018-06-25] MEDS: ASPIRIN 81MG TABLET PO SCH (08:31)
[2018-06-25] MEDS: DOCUSATE SODIUM 100MG CAPSULE PO SCH (08:31)
[2018-06-25] MEDS: CARVEDILOL 6.25 MG TABLET PO SCH ×2 (08:31→20:51)
[2018-06-25] MEDS: BACITRACIN 15GM TUBE TOP SCH ×2 (08:32→17:25)
[2018-06-25] MEDS: BENAZEPRIL 10MG TABLET PO SCH (12:30)
[2018-06-25 12:52] LABS: HEMATOCRIT 32.2 % (42.0-52.0); HEMOGLOBIN 10.7 g/dL (14.0-18.0); MEAN CORPUSCULAR HEMOGLOBIN 30.8 pg (28.0-32.0); MEAN CORPUSCULAR VOLUME 92.5 fL (80.0-94.0); PLATELET 153 x1000/uL (130-400); RED BLOOD CELL COUNT 3.48 mill/uL (4.7-6.1); RED CELL DISTRIBUTION WIDTH 16.7 % (11.6-14.6)
[2018-06-25] MEDS: ATORVASTATIN CALCIUM 40MG TABLET PO SCH (20:51)
[2018-06-26] VITALS (17 sets, daily range): BP systolic 128–176; BP diastolic 74–98
[2018-06-26] MEDS: IPRATROPIUM/ALBUTEROL 0.5-3(2.5)MG/3ML NEB HHN SCH ×6 (01:04→20:50)
[2018-06-26] MEDS: BLOOD SUGAR DIAGNOSTIC STRIP TEST SCH ×4 (05:51→21:14)
[2018-06-26 07:13] LABS: HEMATOCRIT. 31.8 % (42.0-52.0); HEMOGLOBIN. 10.5 g/dL (14.0-18.0); MEAN CORPUSCULAR HEMOGLOBIN 30.6 pg (28.0-32.0); MEAN CORPUSCULAR VOLUME 92.4 fL (80.0-94.0); MEAN PLATELET VOLUME 9.5 fl (7.4-10.4); PLATELET 148 x1000/uL (130-400); RED BLOOD CELL COUNT 3.44 mill/uL (4.7-6.1); RED CELL DISTRIBUTION WIDTH 16.3 % (11.6-14.6)
[2018-06-26] MEDS: INSULIN LISPRO 100 UNITS/ML SUBCUT SCH ×4 (07:20→21:30)
[2018-06-26] MEDS: POLYETHYLENE GLYCOL 3350 (17GM) 1 DOSE PACK PO SCH (08:28)
[2018-06-26] MEDS: LACTULOSE 20G/30ML UDC PO SCH (08:28)
[2018-06-26] MEDS: DOCUSATE SODIUM 100MG CAPSULE PO SCH (08:28)
[2018-06-26] MEDS: BENAZEPRIL 10MG TABLET PO SCH ×2 (08:29→17:00)
[2018-06-26] MEDS: CARVEDILOL 6.25 MG TABLET PO SCH (08:29)
[2018-06-26] MEDS: SENNOSIDES/DOCUSATE SOD 8.6/50MG TABLET PO SCH (08:29)
[2018-06-26] MEDS: FAMOTIDINE 20MG/2ML VIAL IV SCH (08:29)
[2018-06-26] MEDS: ASPIRIN 81MG TABLET PO SCH (08:29)
[2018-06-26] MEDS: BACITRACIN 15GM TUBE TOP SCH ×2 (08:30→17:03)
[2018-06-26] MEDS: CARVEDILOL 12.5MG TABLET PO SCH ×2 (11:36→21:27)
[2018-06-26] MEDS: ATORVASTATIN CALCIUM 40MG TABLET PO SCH (21:26)
[2018-06-26] MEDS: AMLODIPINE 5MG TABLET PO SCH (21:27)
[2018-06-26 23:13] LABS: PLATELET ESTIMATE NORMAL
[2018-06-27] VITALS (13 sets, daily range): BP systolic 139–172; BP diastolic 69–98
[2018-06-27] MEDS: IPRATROPIUM/ALBUTEROL 0.5-3(2.5)MG/3ML NEB HHN SCH ×6 (00:58→21:24)
[2018-06-27 06:04] LABS: HEMATOCRIT. 32.7 % (42.0-52.0); HEMOGLOBIN. 10.9 g/dL (14.0-18.0); MEAN CORPUSCULAR HEMOGLOBIN 31.2 pg (28.0-32.0); MEAN CORPUSCULAR VOLUME 93.2 fL (80.0-94.0); MEAN PLATELET VOLUME 9.4 fl (7.4-10.4); PLATELET 155 x1000/uL (130-400); RED BLOOD CELL COUNT 3.51 mill/uL (4.7-6.1); RED CELL DISTRIBUTION WIDTH 16.3 % (11.6-14.6)
[2018-06-27] MEDS: INSULIN LISPRO 100 UNITS/ML SUBCUT SCH ×4 (07:20→21:46)
[2018-06-27] MEDS: BLOOD SUGAR DIAGNOSTIC STRIP TEST SCH ×4 (07:27→20:43)
[2018-06-27] MEDS: AMLODIPINE 5MG TABLET PO SCH ×3 (08:58→20:43)
[2018-06-27] MEDS: BENAZEPRIL 10MG TABLET PO SCH ×3 (08:59→17:36)
[2018-06-27] MEDS: BACITRACIN 15GM TUBE TOP SCH ×2 (09:00→17:36)
[2018-06-27] MEDS: ASPIRIN 81MG TABLET PO SCH (10:50)
[2018-06-27] MEDS: CARVEDILOL 12.5MG TABLET PO SCH ×2 (10:50→20:43)
[2018-06-27] MEDS: FAMOTIDINE 20MG/2ML VIAL IV SCH (10:51)
[2018-06-27] MEDS: DOCUSATE SODIUM 100MG CAPSULE PO SCH (10:51)
[2018-06-27] MEDS: SENNOSIDES/DOCUSATE SOD 8.6/50MG TABLET PO SCH (10:51)
[2018-06-27] MEDS: POLYETHYLENE GLYCOL 3350 (17GM) 1 DOSE PACK PO SCH (10:52)
[2018-06-27 11:07] LABS: PLATELET ESTIMATE NORMAL
[2018-06-27] MEDS: LACTULOSE 20G/30ML UDC PO SCH (13:19)
[2018-06-27] MEDS ORDERED: SORBITOL 70% SOLN 30ML PO NR (17:58)
[2018-06-27] MEDS: ATORVASTATIN CALCIUM 40MG TABLET PO SCH (20:43)
[2018-06-28] VITALS (8 sets, daily range): BP systolic 126–162; BP diastolic 58–88
[2018-06-28] MEDS: IPRATROPIUM/ALBUTEROL 0.5-3(2.5)MG/3ML NEB HHN SCH ×4 (00:31→11:24)
[2018-06-28] MEDS: BLOOD SUGAR DIAGNOSTIC STRIP TEST SCH ×2 (06:37→12:46)
[2018-06-28] MEDS: INSULIN LISPRO 100 UNITS/ML SUBCUT SCH ×2 (06:44→12:20)
[2018-06-28] MEDS: FAMOTIDINE 20MG/2ML VIAL IV SCH (08:32)
[2018-06-28] MEDS: POLYETHYLENE GLYCOL 3350 (17GM) 1 DOSE PACK PO SCH (08:33)
[2018-06-28] MEDS: CARVEDILOL 12.5MG TABLET PO SCH (08:33)
[2018-06-28] MEDS: SENNOSIDES/DOCUSATE SOD 8.6/50MG TABLET PO SCH (08:33)
[2018-06-28] MEDS: ASPIRIN 81MG TABLET PO SCH (08:33)
[2018-06-28] MEDS: DOCUSATE SODIUM 100MG CAPSULE PO SCH (08:33)
[2018-06-28] MEDS: AMLODIPINE 5MG TABLET PO SCH (08:33)
[2018-06-28] MEDS: BENAZEPRIL 10MG TABLET PO SCH (08:33)
[2018-06-28] MEDS: LACTULOSE 20G/30ML UDC PO SCH (08:34)
[2018-06-28] MEDS: BACITRACIN 15GM TUBE TOP SCH (09:51)
== END 2018-06-28 15:30 | DRG 235 ==
LOC: ER 06:23 → 7WST 12:15 → EDBEDREQ 12:16 → ENRESERV 21:16 → 3WST 06-20 15:10 → CVICU 06-21 11:10 → 3WST 06-24 18:21
PROVIDERS: ADMIT Internal Medicine; ATTEND Internal Medicine
PROC: 5A1D70Z Performance of Urinary Filtration, Intermittent, Less than 6 Hours Per Day (ICD-10-PCS; 2018-06-20)
PROC: 02100Z9 Bypass Coronary Artery, One Artery from Left Internal Mammary, Open Approach (ICD-10-PCS; principal; 2018-06-21)
PROC: 021209W Bypass Coronary Artery, Three Arteries from Aorta with Autologous Venous Tissue, Open Approach (ICD-10-PCS; 2018-06-21)
PROC: 06BQ4ZZ Excision of Left Saphenous Vein, Percutaneous Endoscopic Approach (ICD-10-PCS; 2018-06-21)
PROC: 0W9D0ZZ Drainage of Pericardial Cavity, Open Approach (ICD-10-PCS; 2018-06-21)
PROC: 30233K1 Transfusion of Nonautologous Frozen Plasma into Peripheral Vein, Percutaneous Approach (ICD-10-PCS; 2018-06-21)
PROC: 30233N1 Transfusion of Nonautologous Red Blood Cells into Peripheral Vein, Percutaneous Approach (ICD-10-PCS; 2018-06-21)
PROC: 30233R1 Transfusion of Nonautologous Platelets into Peripheral Vein, Percutaneous Approach (ICD-10-PCS; 2018-06-21)
PROC: 5A1221Z Performance of Cardiac Output, Continuous (ICD-10-PCS; 2018-06-21)
PROC: B24BZZ4 Ultrasonography of Heart with Aorta, Transesophageal (ICD-10-PCS; 2018-06-21)
PROC: 5A09357 Assistance with Respiratory Ventilation, Less than 24 Consecutive Hours, Continuous Positive Airway Pressure (ICD-10-PCS; 2018-06-21)
PROC: 03B10ZZ Excision of Left Internal Mammary Artery, Open Approach (ICD-10-PCS; 2018-06-21)
PROC: 5A1D70Z Performance of Urinary Filtration, Intermittent, Less than 6 Hours Per Day (ICD-10-PCS; 2018-06-22)
PROC: 5A1D70Z Performance of Urinary Filtration, Intermittent, Less than 6 Hours Per Day (ICD-10-PCS; 2018-06-27)
DX: I21.4 Non-ST elevation (NSTEMI) myocardial infarction (principal); N18.6 End stage renal disease; E87.1 Hypo-osmolality and hyponatremia; I13.2 Hypertensive heart and chronic kidney disease with heart failure and with stage 5 chronic kidney disease, or end stage renal disease; I31.9 Disease of pericardium, unspecified; R00.1 Bradycardia, unspecified; I50.9 Heart failure, unspecified; I25.10 Atherosclerotic heart disease of native coronary artery without angina pectoris; E78.00 Pure hypercholesterolemia, unspecified; E78.5 Hyperlipidemia, unspecified; E11.22 Type 2 diabetes mellitus with diabetic chronic kidney disease; I25.5 Ischemic cardiomyopathy; I95.3 Hypotension of hemodialysis; D63.1 Anemia in chronic kidney disease; Z99.2 Dependence on renal dialysis; Z82.49 Family history of ischemic heart disease and other diseases of the circulatory system; Z83.3 Family history of diabetes mellitus; Z87.891 Personal history of nicotine dependence; Z79.899 Other long term (current) drug therapy
CPT/HCPCS: 36415; 36600; 71045; 80048; 82330; 82375; 82805; 82962; 83605; 83615; 83735; 83880; 84100; 84132; 84145; 84484; 85027; 85347; 85520; 86850; 86900; 86920; 86927; 87075; 87102; 88108; 88312; 93005; 93880; 94640; 94660; 96365; 96375; 97110; 97116; 97163; 97166; 97530; 97535; 99285; C1729; C1751; C1893; J0690; J1250; J1580; J1644; J1650; J1815; J2250; J2270; J2370; J2405; J2440; J2704; J2710; J2720; J3010; J3490; J7030; J7040; J7042; J7050; J7060; J7620; L3908; P9016; P9017; P9021; P9034; P9047; Q9968

== ENCOUNTER 2018-11-02 10:23 | Emergency (ER) | payer MEDICARE ==
[~2018-11-02] VITALS: Ht 177.8 cm; Wt 73.0 kg
[~2018-11-02 10:23] MED LIST changes: -ASPI-1159 PO; +ASPI-1393 PO
[2018-11-02] MEDS ORDERED: SODIUM CHLORIDE 0.9% 1,000 ML IV ONE (11:23)
[2018-11-02] MEDS ORDERED: ONDANSETRON HCL 4MG/2ML INJ IV STA (11:23)
[2018-11-02] MEDS ORDERED: MORPHINE SULFATE 4 MG/ML CPJ (NOT FOR IM USE) IV STA (11:23)
[2018-11-02 12:29] LABS: HEMOGLOBIN. 12.6 g/dL (14.0-18.0); MEAN CORPUSCULAR HEMOGLOBIN 32.3 pg (28.0-32.0); MEAN CORPUSCULAR VOLUME 97.4 fL (80.0-94.0); MEAN PLATELET VOLUME 8.5 fl (7.4-10.4); PLATELET 168 x1000/uL (130-400); RED CELL DISTRIBUTION WIDTH 16.5 % (11.6-14.6)
[2018-11-02 12:35] LABS: CHLORIDE 96 mEq/L (98-107)
[2018-11-02 12:37] LABS: INR 1.1; PROTHROMBIN TIME 10.9 sec (9.6-11.0)
[2018-11-02] MEDS ORDERED: SODIUM POLYSTYRENE SULFONATE 15 G/60 ML BOT PO ONE (13:15)
[2018-11-02] MEDS ORDERED: SODIUM BICARBONATE 8.4% 1 MEQ/ML 50ML SYR IV ONE (13:15)
[2018-11-02] MEDS ORDERED: LEVOFLOXACIN 750MG PREMIX 150 ML IV ONE (13:15)
[2018-11-02 13:59] LABS: PLATELET ESTIMATE NORMAL
[2018-11-02 15:29] LABS: KETONES URINE NEGATIVE (NEGATIVE); LEUKOCYTE ESTERASE URINE NEGATIVE (NEGATIVE); NITRITE URINE NEGATIVE (NEGATIVE); OCCULT BLOOD URINE 2+ (NEGATIVE); PROTEIN URINE 3+ (NEGATIVE); SPECIFIC GRAVITY URINE 1.012 (1.005-1.030); UROBILINOGEN URINE 0.2 E.U./dL (0.2-1.0)
[2018-11-02 15:34] LABS: CLARITY URINE CLOUDY (CLEAR); COLOR URINE BLOODY (YELLOW)
[2018-11-02] MEDS ORDERED: CLONIDINE 0.1MG TABLET PO ONE (17:30)
[2018-11-02 20:27] VITALS: BP 160/88
== END 2018-11-02 20:55 | disposition short-term general hospital (02) ==
LOC: ER 10:23 → EDBEDREQTM 18:22 → EDBEDREQ 18:22 → ER 20:55 → CANBEDREQ 21:10
DX: E87.5 Hyperkalemia (principal); J18.9 Pneumonia, unspecified organism; R10.12 Left upper quadrant pain; I12.0 Hypertensive chronic kidney disease with stage 5 chronic kidney disease or end stage renal disease; E11.22 Type 2 diabetes mellitus with diabetic chronic kidney disease; N18.6 End stage renal disease; Z99.2 Dependence on renal dialysis; Z98.890 Other specified postprocedural states; D64.9 Anemia, unspecified; Z79.82 Long term (current) use of aspirin; Z79.899 Other long term (current) drug therapy
CPT/HCPCS: 36415; 71045; 74176; 80053; 81003; 83605; 83690; 84484; 85025; 85610; 85730; 87040; 87086; 93005; 96361; 96365; 96375; 99285; J1956; J2270; J2405; J3490; J7030

== ENCOUNTER 2019-06-25 12:41 | Inpatient (IN) | payer MEDICAID, MEDICARE ==
[~2019-06-25] VITALS: Ht 167.6 cm; Wt 68.1 kg
[~2019-06-25 12:41] MED LIST changes: -ASPI-1393 PO; +ASPI-1497 PO; +ATOR-2 PO; -ATOR40TA70 PO; +BENA10TA74 PO; -BENA40TA9 PO; +CARV12.545 PO; -CINA30 PO; -CYCL5TAB PO; -DILT240C91 PO; -GLIM1TAB2 PO; -HYDR-523 PO; -KRIL1CAP23 PO; -SEVE800T8 PO; -TURM1POW MC
[2019-06-25] MEDS ORDERED: MORPHINE SULFATE 4 MG/ML CPJ (NOT FOR IM USE) IV STA (18:10)
[2019-06-25] MEDS ORDERED: ONDANSETRON HCL 4MG/2ML INJ IV ONE (18:30)
[2019-06-25] MEDS ORDERED: MORPHINE SULFATE 2 MG/ML CPJ (NOT FOR IM USE) IV ONE (18:30)
[2019-06-25 19:27] LABS: HEMOGLOBIN. 12.9 g/dL (14.0-18.0); MEAN CORPUSCULAR HEMOGLOBIN 32.7 pg (28.0-32.0); MEAN CORPUSCULAR VOLUME 101.2 fL (80.0-94.0); MEAN PLATELET VOLUME 8.8 fl (7.4-10.4); PLATELET 267 x1000/uL (130-400); RED BLOOD CELL COUNT 3.95 mill/uL (4.7-6.1); RED CELL DISTRIBUTION WIDTH 17.1 % (11.6-14.6)
[2019-06-25 19:28] LABS: CHLORIDE 97 mEq/L (98-107)
[2019-06-25 20:47] LABS: PLATELET ESTIMATE NORMAL
[2019-06-26] MEDS ORDERED: MORPHINE SULFATE 4 MG/ML CPJ (NOT FOR IM USE) IV NR (02:00)
[2019-06-26] MEDS ORDERED: SODIUM CHLORIDE 0.9% 500 ML IV ONE (02:00)
[2019-06-26] MEDS ORDERED: FENTANYL CITRATE/PF 50MCG/ML 2ML VIAL IV ONE (02:00)
[2019-06-26] MEDS ORDERED: CEFTRIAXONE 1 G PREMIX 50 ML IV ONE (02:00)
[2019-06-26] MEDS ORDERED: ASPIRIN 325MG TABLET PO ONE (02:00)
[2019-06-26] MEDS ORDERED: ONDANSETRON HCL 4MG/2ML INJ IV NR (02:00)
[2019-06-26] MEDS ORDERED: ONDANSETRON HCL 4MG/2ML INJ IV ONE (02:00)
[2019-06-26] MEDS ORDERED: METRONIDAZOLE 500 MG PREMIX 100 ML IV ONE (02:00)
[2019-06-26 02:30] VITALS: BP 150/95
[2019-06-26 14:30] VITALS: BP 150/95
[2019-06-26] MEDS ORDERED: ACETAMINOPHEN 325MG TABLET PO PRN (15:30)
[2019-06-26] MEDS ORDERED: MORPHINE SULFATE 2 MG/ML CPJ (NOT FOR IM USE) IV PRN (15:30)
[2019-06-26] MEDS ORDERED: ONDANSETRON HCL 4MG/2ML INJ IV PRN (15:30)
[2019-06-26 16:00] VITALS: BP 147/90
[2019-06-26] MEDS ORDERED: CEFTRIAXONE 1 G PREMIX 50 ML IV SCH (17:00)
[2019-06-26] MEDS: METRONIDAZOLE 500 MG PREMIX 100 ML IV SCH (17:07)
[2019-06-26 20:00] VITALS: BP 149/96
[2019-06-26] MEDS: ENOXAPARIN 30MG/0.3ML SYR SUBCUT SCH (20:31)
[2019-06-26] MEDS: AMLODIPINE 5MG TABLET PO SCH (20:32)
[2019-06-26] MEDS: CARVEDILOL 12.5MG TABLET PO SCH (20:32)
[2019-06-26] MEDS: ATORVASTATIN CALCIUM 20MG TABLET PO SCH (20:32)
[2019-06-27 00:05] VITALS: BP 133/83
[2019-06-27] MEDS: CEFTRIAXONE 1 G PREMIX 50 ML IV SCH (01:17)
[2019-06-27] MEDS: METRONIDAZOLE 500 MG PREMIX 100 ML IV SCH ×3 (01:46→18:15)
[2019-06-27 04:00] VITALS: BP 133/76
[2019-06-27 06:46] LABS: BASOPHILS % 0.8 % (0.0-2.0); EOSINOPHILS % 0.6 % (0.0-5.0); HEMATOCRIT. 40.8 % (42.0-52.0); HEMOGLOBIN. 13.4 g/dL (14.0-18.0); LYMPHOCYTES % 8.4 % (20.0-50.0); MEAN CORPUSCULAR HEMOGLOBIN 33.4 pg (28.0-32.0); MEAN CORPUSCULAR VOLUME 101.7 fL (80.0-94.0); MEAN PLATELET VOLUME 8.7 fl (7.4-10.4); MONOCYTES % 9.3 % (2.0-8.0); NEUTROPHILS % 80.9 % (40.0-76.0); PLATELET 275 x1000/uL (130-400); RED BLOOD CELL COUNT 4.01 mill/uL (4.7-6.1); RED CELL DISTRIBUTION WIDTH 17.3 % (11.6-14.6)
[2019-06-27 08:00] VITALS: BP 125/72
[2019-06-27] MEDS ORDERED: BENAZEPRIL 10MG TABLET PO SCH (09:00)
[2019-06-27] MEDS: CARVEDILOL 12.5MG TABLET PO SCH ×2 (09:00→21:18)
[2019-06-27] MEDS: AMLODIPINE 5MG TABLET PO SCH ×2 (09:00→21:18)
[2019-06-27] MEDS: ASPIRIN 81MG TABLET PO SCH (09:06)
[2019-06-27 12:26] VITALS: BP 121/63
[2019-06-27 16:00] VITALS: BP 131/81
[2019-06-27 20:00] VITALS: BP 119/61
[2019-06-27] MEDS: ATORVASTATIN CALCIUM 20MG TABLET PO SCH (21:18)
[2019-06-27] MEDS: ENOXAPARIN 30MG/0.3ML SYR SUBCUT SCH (21:18)
[2019-06-28 00:05] VITALS: BP 122/78
[2019-06-28] MEDS: CEFTRIAXONE 1 G PREMIX 50 ML IV SCH (01:50)
[2019-06-28 04:00] VITALS: BP 127/69
[2019-06-28] MEDS ORDERED: METRONIDAZOLE 500MG TABLET PO SCH (06:00)
[2019-06-28 08:00] VITALS: BP_SYST 125; BP_SYST 132; BP_DIAS 72; BP_DIAS 76
[2019-06-28] MEDS: CARVEDILOL 12.5MG TABLET PO SCH (09:04)
[2019-06-28] MEDS: ASPIRIN 81MG TABLET PO SCH (09:04)
[2019-06-28] MEDS: AMLODIPINE 5MG TABLET PO SCH (09:05)
[2019-06-28 09:16] VITALS: BP 125/72
== END 2019-06-28 10:34 | disposition home or self-care (01) | DRG 391 ==
LOC: ER 12:41 → 7WST 06-26 01:47 → ENRESERV 06-26 13:09
PROVIDERS: ADMIT Internal Medicine Nephrology; ATTEND Internal Medicine Nephrology
PROC: 5A1D70Z Performance of Urinary Filtration, Intermittent, Less than 6 Hours Per Day (ICD-10-PCS; principal; 2019-06-27)
DX: K52.9 Noninfective gastroenteritis and colitis, unspecified (principal); I50.23 Acute on chronic systolic (congestive) heart failure; N18.6 End stage renal disease; E44.0 Moderate protein-calorie malnutrition; E87.1 Hypo-osmolality and hyponatremia; I13.2 Hypertensive heart and chronic kidney disease with heart failure and with stage 5 chronic kidney disease, or end stage renal disease; I42.9 Cardiomyopathy, unspecified; R18.8 Other ascites; D63.8 Anemia in other chronic diseases classified elsewhere; E78.5 Hyperlipidemia, unspecified; E87.5 Hyperkalemia; E87.8 Other disorders of electrolyte and fluid balance, not elsewhere classified; I25.10 Atherosclerotic heart disease of native coronary artery without angina pectoris; Z95.1 Presence of aortocoronary bypass graft; Z99.2 Dependence on renal dialysis; Z68.24 Body mass index [BMI] 24.0-24.9, adult; Z79.899 Other long term (current) drug therapy
CPT/HCPCS: 36415; 71045; 74176; 80048; 80053; 84484; 85025; 93005; 99285; J0696; J1650; J2270; J2405; J3490; J7040